=== PATIENT | male | born 1990 | race Caucasian/White ===

== ENCOUNTER 2017-02-22 08:36 | Emergency (ER) | payer SELFPAY ==
[~2017-02-22] VITALS: Ht 172.7 cm; Wt 90.0 kg
[2017-02-22] MEDS ORDERED: HYDROCODONE/ACETAMINOPHEN 5/325MG TABLET PO ONE (12:30)
[2017-02-22 18:04] VITALS: BP 131/87
== END 2017-02-22 18:07 | disposition home or self-care (01) ==
LOC: ER 09:00
DX: S10.93XA Contusion of unspecified part of neck, initial encounter (principal); M54.9 Dorsalgia, unspecified; M25.512 Pain in left shoulder; V49.49XA Driver injured in collision with other motor vehicles in traffic accident, initial encounter; Y93.89 Activity, other specified; Y92.410 Unspecified street and highway as the place of occurrence of the external cause
CPT/HCPCS: 72070; 72100; 72125; 73030; 99284; Z7610

== ENCOUNTER 2018-04-22 12:26 | Emergency (ER) | payer SELFPAY ==
[~2018-04-22] VITALS: Ht 172.7 cm; Wt 109.0 kg
[2018-04-22] MEDS ORDERED: BACITRACIN ZINC OINT UDPKT TOP ONE (17:15)
[2018-04-22] MEDS ORDERED: TETANUS, DIPHTHERIA, PERTUSSIS VAC/PF 0.5ML (>7YR OLD) IM ONE (17:15)
[2018-04-22] MEDS ORDERED: LIDOCAINE HCL/PF 1% 10 MG/ML 5ML VIAL IJ ONE (17:15)
[2018-04-22] MEDS ORDERED: IBUPROFEN 600MG TABLET PO ONE (17:15)
[2018-04-22 18:05] VITALS: BP 131/81
== END 2018-04-22 19:21 | disposition home or self-care (01) ==
LOC: ER 12:26
DX: S01.111A Laceration without foreign body of right eyelid and periocular area, initial encounter (principal); W22.8XXA Striking against or struck by other objects, initial encounter; Y93.89 Activity, other specified; Y92.89 Other specified places as the place of occurrence of the external cause; Y99.8 Other external cause status
CPT/HCPCS: 12011; 90471; 90715; 99283; J3490; Z7610

== ENCOUNTER 2021-03-15 19:59 | Emergency (ER) | payer SELFPAY ==
[~2021-03-15] VITALS: Ht 177.8 cm; Wt 109.0 kg
[2021-03-15 20:43] VITALS: BP 140/90
== END 2021-03-15 21:26 | disposition home or self-care (01) ==
LOC: ER 19:59
DX: U07.1 COVID-19 (principal)
CPT/HCPCS: 99283; C9803; U0003; U0005

== ENCOUNTER 2021-06-09 14:41 | Emergency (ER) | payer MEDICAID, OTHER ==
[~2021-06-09] VITALS: Ht 180.3 cm; Wt 109.0 kg
[2021-06-09] MEDS ORDERED: IBUPROFEN 600MG TABLET PO STA (16:17)
[2021-06-09 16:26] VITALS: BP 153/102
[2021-06-09 16:36] LABS: CLARITY URINE CLOUDY (CLEAR); COLOR URINE YELLOW (YELLOW); KETONES URINE NEGATIVE (NEGATIVE); LEUKOCYTE ESTERASE URINE 3+ (NEGATIVE); NITRITE URINE NEGATIVE (NEGATIVE); OCCULT BLOOD URINE 3+ (NEGATIVE); PH URINE 6.5 (4.5-8.0); PROTEIN URINE 2+ (NEGATIVE); SPECIFIC GRAVITY URINE 1.011 (1.005-1.030); UROBILINOGEN URINE 0.2 E.U./dL (0.2-1.0)
[2021-06-09 16:40] LABS: BASOPHILS % 0.3 % (0.0-2.0); CHLORIDE 108 mEq/L (98-107); EOSINOPHILS % 1.2 % (0.0-5.0); HEMATOCRIT. 43.1 % (42.0-52.0); HEMOGLOBIN. 14.7 g/dL (14.0-18.0); LYMPHOCYTES % 20.8 % (20.0-50.0); MEAN CORPUSCULAR HEMOGLOBIN 29.7 pg (28.0-32.0); MEAN CORPUSCULAR VOLUME 86.9 fL (80.0-94.0); MEAN PLATELET VOLUME 8.7 fl (7.4-10.4); NEUTROPHILS % 72.7 % (40.0-76.0); PLATELET 369 x1000/uL (130-400); RED BLOOD CELL COUNT 4.96 mill/uL (4.7-6.1); RED CELL DISTRIBUTION WIDTH 14.6 % (11.6-14.6)
[2021-06-09] MEDS ORDERED: CEPH500C2 MT (17:52)
[2021-06-09] MEDS ORDERED: IBUP-2029 MT (17:52)
[2021-06-09] MEDS ORDERED: CEPHALEXIN 250MG CAPSULE PO NR (18:00)
== END 2021-06-09 18:36 | disposition home or self-care (01) ==
LOC: ER 14:41
DX: R30.0 Dysuria (principal); R31.0 Gross hematuria; R03.0 Elevated blood-pressure reading, without diagnosis of hypertension
CPT/HCPCS: 36415; 74176; 80053; 81003; 85025; 87077; 87186; 99284